=== PATIENT | male | born 1950 | race Caucasian/White ===

== ENCOUNTER → 2017-08-30 | Day surgery (SDC) | payer MEDICARE, BC ==
[~2017-08-30] VITALS: Ht 177.8 cm; Wt 97.3 kg
--- NOTE | ~2017-08-30 | CATH ---
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 Post dilated mid and prox RCA with 3.25 x 15 NC Emerge. 2. IVUS Ostial RCA, 5.2mm2 not hemodynamically significant. Interventional Recommendations 1. custodial DAPT. 2. Medical management, Procedure Description The patient was brought to the diagnostic cardiac catheterization-laboratory in the fasting, non-sedated state. Informed consent was obtained in the written and verbal form after the risks and benefits were explained. The patient had no further questions and agreed to proceed. The planned puncture-incision site(s) were shaved and prepped with ChloraPrep and draped in the usual sterile manner. Conscious sedation, supplemental oxygen, and pain control medications were delivered by a registered nurse under physician guidance. Surface ECG rhythm, blood pressure measurement, and pulse oximetry were monitored throughout the procedure. Arterial access. The right radial access site was infiltrated with lidocaine. The vessel was entered with the Seldinger technique. A 6F sheath was advanced into the vessel and used for catheter placement. Selective right coronary angiography. A FR4 catheter was advanced into the right coronary vessel ostium under fluoroscopic guidance. Contrast was injected by hand. Images were obtained in multiple projections. Angioplasty and Stent Placement: A FR4 guiding catheter was used to intubate the mRCA vessel. A 0.14 wire was then used to cross the lesion. A 2.5 x 15 Emerge balloon catheter was placed across the lesion and inflated. The balloon catheter was then removed. A 2.75 x 28 Synergy Drug Eluting Stent was placed and inflated. Post placement angiograms were performed. Arterial artery hemostasis was achieved with radial holding device. The patient was transferred to a regular nursing floor via cart accompanied by a nurse. The patient left the laboratory in stable condition. Procedure Procedure Type PCI procedure:PTCA:, RCA, Additional Imaging:, IVUS:, Initial Vessel Indications: CAD. The procedure was explained in detail to the patient. Risks, complications and alternative treatments were reviewed. Written consent was obtained. Medications Reviewed with Patient prior to Procedure. Complications: Non complication and No Complication. Angiographic Findings Dominance: Right Cardiac Arteries and Lesion Findings LMCA: Normal (0% Stenosis). LAD: Abnormal. Lesion on Mid LAD: 70% stenosis . LCx: Abnormal. Lesion on Mid CX: 70% stenosis . RCA: Abnormal. Lesion on Prox RCA: 80% stenosis . Lesion on Mid RCA: 80% stenosis . Devices used - [employer] GUIDEWIRE 180CM. Number of passes: 1. - CATH BAL RX EMERGE 2.5X15. 3 inflation(s) to a max pressure of: 10 han. - CATH STENT SYNERGY 2.75 X 28. 1 inflation(s) to a max pressure of: 16 han. - CATH BAL RX NC EMERGE 3.25X15. 2 inflation(s) to a max pressure of: 18 han. Coronary Tree Procedure Data Procedure Date Date: 08/30/2017Start: 06:55 AM Entry Locations - Percutaneous access was performed through the Right Radial artery (Primary location). A 6 Fr sheath was inserted. Hemostasis was successfully obtained using a TR band. Procedure Medications Order and Administration + + +---------+-------+ !Time !Medication !Dosage !Route ! + + +---------+-------+ !08/30/2017 !Versed !2 mg !I.V. ! !06:56 AM ! ! ! ! + + +---------+-------+ !08/30/2017 !Fentanyl !50 mcg !I.V. ! !06:57 AM ! ! ! ! + + +---------+-------+ !08/30/2017 !Sodium Chloride !10 ml !I.V. ! !06:57 AM ! ! ! ! + + +---------+-------+ !08/30/2017 !Versed !1 mg !I.V. ! !07:02 AM ! ! ! ! + + +---------+-------+ !08/30/2017 !SF Radial Cocktail: 200mcg Nitro, 2.5 mg! !I.A. ! !07:05 AM !Verapamil, 5000u Heparin ! ! ! + + +---------+-------+ !08/30/2017 !Versed !1 mg !I.V. ! !07:05 AM ! ! ! ! + + +---------+-------+ !08/30/2017 !Fentanyl !25 mcg !I.V. ! !07:06 AM ! ! ! ! + + +---------+-------+ !08/30/2017 !Heparin (ACC_3) !3000 !I.V. ! !07:07 AM ! !units ! ! + + +---------+-------+ !08/30/2017 !Nitroglycerin !200 mcg !I.C. ! !07:17 AM ! ! ! ! + + +---------+-------+ !08/30/2017 !Heparin (ACC_3) !1500 !I.V. ! !07:46 AM ! !units ! ! + + +---------+-------+ Devices Used - AGUIDE CATHETER 6FR FR 4.0 100CMwas used for:RCA Intervention. Contrast Material - Isovue 58151 ml Fluoroscopy Time: Diagnostic: 8:24 minutes. Total: 8:24 minutes. Fluoroscopy Dose: Diagnostic: 1514 mGy. Total: 1514 mGy. Estimated Blood Loss: 12 ml. Medical History Allergies - Other:(Janumet, Rosuvastatin, Bactrim). - Penicillin. - Sulfa. - Other:(trimethoprim, janument, rosuvastatin). Risk Factors The patient risk factors include:treated hypercholesterolemia, treated hypertension, family history of premature CAD, orally-treated diabetes mellitus, last creatinine: 1.3 mg/dl, creatinine clearance: 76.06 ml/min, dyslipidemia and former tobacco use. Admission Data Admission Date: 08/30/2017 Admission Time: 05:26 AM Insurance Payors: Medicare. Clinical Evaluation Leading to Procedure Diagnosed on 08/18/2017 07:00 AM. - The patient's CAD presentation was assessed as: Unstable angina. - The patient's anginal syndrome during the past two weeks was assessed as: Class III according to the [place] Cardiovascular [employer] Classification System (CCS). Anti-anginal medications were prescribed during the past two weeks. The medication is: Beta Blockers. Hemodynamics Condition: Rest O2 Consumption: Estimated: 238.21Heart Rate: 53 bpm Pressures (mmHg) +-----+ + !Site !Pressure ! +-----+ + !AO !121/74 (88) ! +-----+ + !AO !116/48 (75) ! +-----+ + Shunts Oxygen Values O2 Capacity 179.52 O2 Consumption 238.21 Signatures
== END | disposition home or self-care (01) ==
LOC: SSS 05:26
DX: I25.110 Atherosclerotic heart disease of native coronary artery with unstable angina pectoris (principal); I42.9 Cardiomyopathy, unspecified; I10 Essential (primary) hypertension; E78.5 Hyperlipidemia, unspecified; I49.3 Ventricular premature depolarization; Z88.0 Allergy status to penicillin; Z88.2 Allergy status to sulfonamides; Z88.8 Allergy status to other drugs, medicaments and biological substances; Z79.82 Long term (current) use of aspirin; Z79.899 Other long term (current) drug therapy; Z79.84 Long term (current) use of oral hypoglycemic drugs